=== PATIENT | female | born 1975 | race Caucasian/White ===

== ENCOUNTER 2020-09-17 18:40 | Outpatient (REF) | payer OTHER, SELFPAY ==
[2020-09-17 19:23] LABS: HCT 46.7 % (36.0-46.0); HGB 16.2 g/dL (11.2-15.7); MCH 33.1 pg (27.0-33.0); MCHC 34.7 % (32.0-36.0); MCV 95.5 fL (80-95); MPV 8.5 fL (8.0-11.0); Platelet Count 365 10^3/uL (130-400); RBC 4.89 10^6/uL (3.93-5.22); RDW 12.7 % (11.7-14.6); RDW-SD 45.1 fL; WBC 8.68 10^3/uL (4.4-10.8)
[2020-09-17 19:41] LABS: ALT 33 U/L (14-59); AST 23 U/L (15-37); Albumin 3.9 g/dL (3.4-5.0); Alkaline Phosphatase 92 U/L (46-116); Anion Gap 10.7 mmol/L (3-11); BUN 15 mg/dL (7-18); Bilirubin, Total 0.6 mg/dL (0.2-1.0); CO2 26.3 mmol/L (21.0-32.0); CREATININE 0.9 mg/dL (0.55-1.02); Calcium 9.3 mg/dL (8.5-10.1); Chloride 103 mmol/L (98-107); Glucose 103 mg/dL (74-106); Potassium 4.5 mmol/L (3.5-5.1); Sodium 140 mmol/L (136-145); Total Protein 7.2 g/dL (6.4-8.2)
== END 2020-09-17 18:41 | disposition home or self-care (01) ==
LOC: NCHCN 18:40
PROVIDERS: Visit Provider Nurse Practitioner
DX: F10.99 Alcohol use, unspecified with unspecified alcohol-induced disorder (principal); F17.210 Nicotine dependence, cigarettes, uncomplicated; R63.0 Anorexia
CPT/HCPCS: 80053; 85027

== ENCOUNTER → 2021-12-17 16:06 | Outpatient (CLI) | payer OTHER, SELFPAY ==
--- NOTE | 2021-12-17 | DI.RAD_ITS ---
Exam(s) XR ELBOW LT COMPLETE EXAM: XR ELBOW LT COMPLETE CLINICAL HISTORY: LEFT ELBOW PAIN--M25.522 TENDER OLECRANON HEMATOMA MID ULNA SHAFT. TECHNIQUE: 2D digital imaging was performed. Three views. COMPARISON: No exams were available for comparison FINDINGS: BONES: No acute fracture is present. No bony destructive lesion is seen. JOINTS: The elbow is normally aligned. No joint effusion is seen. SOFT TISSUE: Normal. IMPRESSION: Unremarkable radiographs of the left elbow. DATA REPOSITORY: RADIATION DOSE DELIVERED:
== END ==
PROVIDERS: Visit Provider Family Medicine
DX: S50.02XA Contusion of left elbow, initial encounter (principal); W19.XXXA Unspecified fall, initial encounter
CPT/HCPCS: 73080

== ENCOUNTER 2022-07-10 16:09 | Outpatient (REF) | payer OTHER, SELFPAY ==
[2022-07-10 15:36] LABS: Abs Immature Grans 0.02 10^3/uL (0.0-0.06); Absolute Basophil Count 0.06 10^3/uL (0.0-0.2); Absolute Eosinophil Count 0.11 10^3/uL (0.0-0.7); Absolute Lymphocyte Count 2.13 10^3/uL (1.2-3.4); Absolute Monocyte Count 0.62 10^3/uL (0.1-0.8); Absolute Neutrophil Count 4.19 10^3/uL (1.2-6.7); Basophils % 0.8; Eosinophils % 1.5; HCT 51.4 % (36.0-46.0); Immature Grans % 0.3; Lymphocytes % 29.9; MCV 92 fL (80-95); MPV 8.2 fL (8.0-11.0); Monocytes % 8.7; Neutrophils % 58.8; Platelet Count 302 10^3/uL (130-400); RBC 5.62 10^6/uL (3.93-5.22); RDW 13.2 % (11.7-14.6); RDW-SD 45.2 fL; WBC 7.13 10^3/uL (4.4-10.8)
[2022-07-10 16:04] LABS: ALT 34 U/L (14-59); AST 20 U/L (15-37); Albumin 3.8 g/dL (3.4-5.0); Alkaline Phosphatase 88 U/L (46-116); Anion Gap 9.7 mmol/L (3-11); BUN 13 mg/dL (7-18); Bilirubin, Total 0.3 mg/dL (0.2-1.0); CO2 25.3 mmol/L (21.0-32.0); CREATININE 0.8 mg/dL (0.55-1.02); Calculated LDL 147 mg/dL (<100); Chloride 105 mmol/L (98-107); Cholesterol 200 mg/dL (<200); Glucose 120 mg/dL (74-106); HDL Cholesterol 41 mg/dL (40-60); Potassium 4.7 mmol/L (3.5-5.1); Sodium 140 mmol/L (136-145); TSH (W/Ref FT4) 1.99 uIU/mL (0.36-3.74); Total Protein 7.3 g/dL (6.4-8.2); Triglyceride 62 mg/dL (<150)
== END 2022-07-10 16:10 | disposition home or self-care (01) ==
LOC: NCHCN 16:09
PROVIDERS: PCP Nurse Practitioner Family; Visit Provider Nurse Practitioner Family
DX: Z00.00 Encounter for general adult medical examination without abnormal findings (principal); F41.8 Other specified anxiety disorders; F10.11 Alcohol abuse, in remission; F17.210 Nicotine dependence, cigarettes, uncomplicated; Z13.220 Encounter for screening for lipoid disorders
CPT/HCPCS: 80053; 80061; 84443; 85025

== ENCOUNTER 2023-03-09 06:14 | Day surgery (SDC) | payer OTHER, SELFPAY ==
--- NOTE | 2023-03-08 14:49 | W.PM.DSUDISC ---
Date of service: 03/09/23 Time of Service: 07:59 Discharge Plan Disposition Patient Disposition: Home Condition: Good Discharge Details Reason For Visit: screening colonoscopy Attending Provider: Syed Millard Primary Care Provider: NICHOLAS CARVALHO Home Meds and New Rx's Prescriptions: Continued citalopram [Celexa] 10 mg tablet 10 mg PO DAILY propranolol 10 mg tablet 10 mg PO BID PRN Patient Comments: As needed for anxiety ibuprofen 200 mg capsule 200 mg PO ONCE Discontinued bisacodyl [Dulcolax (bisacodyl)] 5 mg tablet,delayed release (DR/EC) 5 mg PO ONCE Qty: 4 0RF polyethylene glycol 3350 17 gram/dose powder 17 g PO DAILY Qty: 238 0RF Discharge Instructions Instructions: Colorectal Polyps (GEN) Additional Instructions: Bernard, we were able to complete your colonoscopy today without any difficulty. I found 3 polyps in total. All were quite small, and I removed them all completely. Once I have the results of the polyp report, I will be in touch with recommendations for your next colonoscopy. If you have any questions in the meantime, please do not hesitate to call. 1. If tolerated, consume a soft, low fiber diet for 1-2 days. 2[address] Do not drive, drink alcohol, operate machinery, make critical decisions, or do activities that require coordination or balance for 24 hours. 3. Because air was put into your colon during the procedure, expelling air from your rectum (passing gas or farting) is normal. 4. You may not have a bowel movement for 1-3 days because of the colonoscopy prep. This is normal. 5. Go directly to the emergency room if you notice any of the following: Develop chills (warm to touch), or if you have a thermometer and your temperature is above 101 Difficulty breathing or difficultly swallowing Persistent vomiting Severe abdominal pain, other than gas cramps Severe chest pain Black, tarry stools Any bleeding ? exceeding one tablespoon 6. Call your physician if the site where your intravenous was started becomes red, swollen, painful, and warm to touch. 7. Your physician has reviewed your pre-procedure medications. Please continue to take those medications as previously ordered. You will be given specific information/education regarding any changes to your medications before leaving. Activity:: Activity as Tolerated Diet:: As Tolerated Discharge Orders Discharge Orders: Discharge Order (Routine); Ordered 03/08/23 Ordered By: Syed Millard DS: Diagnosis Discharge Diagnosis (1) Screen for colon cancer: Status: Acute Asessment and Plan: Follow-up on polypectomy results
--- NOTE | 2023-03-08 14:50 | COLE_ITS ---
Date of service: 03/09/23 Time of Service: 08:00 Colonoscopy Report Date of procedure: 03/09/23 Pre-op diagnosis general: screening colonoscopy Post-op diagnosis procedure note: other (Colorectal polyps) Procedure: Colonoscopy with polypectomy Surgeon: Syed Millard Anesthesia Type: General:No Airway Estimated blood loss (mL): 5 Pathology: other (0.5 cm polyp at 35 cm, 0.25 cm rectal polyps x2) Complications: None Disposition: same day Indications: Bernard is 48 years old and he needs a screening colonoscopy Prep: Miralax/Dulcolax Procedure Start Time: 07:30 Procedure End Time: 07:50 Retraction Time: 9 Findings: 0.5 cm polyp at 35 cm, 0.25 cm rectal polyps x2 Procedure Description: After the induction of monitored anesthetic care, and with the patient in left lateral decubitus position, I began by performing an external anorectal exam.? Perineum and skin were normal, as was the anal verge.? There was no evidence of external hemorrhoids.? Next, I performed a digital rectal exam.? I did not appreciate any abnormal findings.? Next, I advanced a colonoscope into the rectal vault.? I performed retroflexion.? This appeared normal.? Using insufflation, I then advanced the colonoscope beyond the rectal folds and into the sigmoid colon before advancing towards the cecum.? The scope was noted to be in the cecum by identification of the ileocecal valve and old appendiceal orifice.? I then began withdrawing the colonoscope using repeated irrigation as necessary for full evaluation of the colonic mucosa. Around 35 cm from the anal verge I identified a 0.5 cm polyp. ?It appeared flat in character. ?I was able to remove this with a cold forcep polypectomy. ?I examined the site, and there was minimal bleeding. ?Once this was completed, I continued to withdraw the scope and examine the remainder of the colonic mucosa.?Once the scope was withdrawn to the level of the rectum, great care was taken to examine portions of the rectal folds.? Within the mid rectum, worst to 0.25 cm flat polyps. These were also removed with cold forceps without any issue. Finally, the scope was withdrawn and the patient was brought to the same-day surgery recovery unit as the anesthetic wore off. ?The findings and instructions were shared with the patient prior to discharge. [place] Bowel Prep [place] Bowel Prep Right Colon: 3 Left Colon: 2 Transverse Colon: 3 Total Score: 8
[2023-03-09] MEDS: Lactated Ringers 1,000 ML 80 ML IV (06:35)
[2023-03-09 06:36] VITALS: BP 109/74; PULSE 82; RESP 16; TEMP 36.6; O2SAT 95
--- NOTE | 2023-03-09 07:17 | ANES.PREOP_ITS ---
General Info Date of Service Date Performed: 03/09/23 Height: 5 ft 6 in Weight: 62 kg Body Mass Index (BMI): 22.0 Surgical Procedure: Operation Date: 03/09/23 07:35 Proposed Procedure Side Surgeon p Colonoscopy Syed Millard MD Meds Allergies and Home Medications Allergies Allergy/AdvReac Type Severity Reaction Status Date / Time codeine Allergy Severe Verified 03/09/23 06:31 Home Medication Medication Instructions Recorded citalopram 10 mg tablet (Celexa) 10 mg PO DAILY 02/02/23 propranolol 10 mg tablet 10 mg PO BID PRN 03/06/23 ibuprofen 200 mg capsule 200 mg PO ONCE 03/09/23 Current Visit Medications: Current Medications Generic Name Dose Route Start Last Admin Trade Name Freq PRN Reason Stop Dose Admin Hyoscyamine Sulfate 0.125 mg 03/08/23 14:51 Hyoscyamine 0.125 Mg Sl/Oral/Chew SL 04/07/23 14:50 DIRECTED PRN Ringer's Solution 1,000 mls @ 80 mls/hr 03/09/23 06:00 03/09/23 06:35 IV 03/09/23 23:59 80 mls/hr INFUSION ERICK Administration IV Miscellaneous Supplies 1 each 03/09/23 06:00 Iv Access IV 03/09/23 23:59 DIRECTED ERICK Ondansetron HCl 4 mg 03/08/23 14:51 Ondansetron 4 Mg/2 Ml Vial IVP 04/07/23 14:50 Q4H PRN PRN Nausea / Vomiting Sodium Chloride 0 ml 03/09/23 06:00 Normal Saline Flush 10 Ml Syr IV 03/09/23 23:59 PRN PRN Sodium Chloride 0 ml 03/09/23 06:00 Normal Saline 10 Ml Vial IJ 03/09/23 23:59 DIRECTED PRN Sterile Water 0 ml 03/09/23 06:00 Water,Injection,Sterile 10 Ml Vial IJ 03/09/23 23:59 DIRECTED PRN PFSH Active Problems Active Problems: Problem Status Onset Code Screen for colon cancer Z12.11 Chronic anxiety F41.9 Tobacco dependence F17.200 Alcohol abuse, 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 stated when he woke up from anesthesia he almost bit his tongue off, had a seizure of something (at [facility]), 20 years ago Surgical History Surgical History H/O cataract removal with insertion of prosthetic lens R eye, cornea replacement Hx of colonoscopy Hx of appendectomy Tobacco Smoking/Tobacco Use Status: Current every day Tobacco Type: cigars Per week: 35 Alcohol Alcohol Intake: never Substance Use Substance use: Daily Substance use type: marijuana Details: Marijuana: bowl daily, last time used was 03/08/23. Cigar, smoked on way in here today. Vital Signs and Lab Results Vital Signs Most Recent Vital Signs in EMR: Most Recent Vital Signs Temp Pulse Resp BP Pulse Ox 36.6 C 82 16 109/74 95 03/09/23 06:36 03/09/23 06:36 03/09/23 06:36 03/09/23 06:36 03/09/23 06:36 Lab Results Blood Type / Crossmatch: No Data to Display Complete Blood Count: No Data to Display Complete Metabolic Panel: No Data to Display Liver Function Panel: No Data to Display Coagulation Panel: No Data to Display Cardiac Panel: No Data to Display Arterial Blood Gas: No Data to Display Venous Blood Gas: No Data to Display Pancreas Panel: No Data to Display Thyroid Panel: No Data to Display Infectious Disease: No Data to Display Blood Cultures: No Data to Display Toxicology Panel: No Data to Display Anesthesia Assessment and Plan Anesthesia History Personal History: Other Family History: No Family History of Anesthesia Complications Exercise Tolerance Exercise Tolerance: Metabolic Equivalents>4 Pertinent Negatives Pertinent Negatives: No Symptoms of GERD, No Major Cardiovascular Symptoms or Complaints, No Major Pulmonary Symptoms or Complaints and No History of CVA/TIA Cardiac & Pulmonary Exam Cardiac Exam: Normal S1/S2 Heart Sounds Pulmonary Exam: Clear Bilateral Breath Sounds Implantable Cardiac Device Does patient have a Pacemaker or an ICD?: No Airway Exam Known Difficult Airway: No Mallampati Class: 3 Mouth Opening: Normal (> 3cm) Thyromental Distance: Greater than 3 cm Neck Range of Motion: Full ROM Neck Circumference: Normal Teeth Condition: Removable Dentures/Plates Upper ASA Classification ASA Score: ASA 2 Emergency Case?: No NPO Status NPO Status: NPO Clears >2 hours, Solids >8 hours Anesthesia Plan Resuscitation Status: Full Code Anesthesia Technique: General Anesthesia Airway Planned: Natural Airway Monitors Used: Standard Monitors Preoperative Comments:: Questionable seizure following appendectomy in 1999, no issues with sedation for colonoscopy.
[2023-03-09 07:20] VITALS: BMI 22.0
--- NOTE | 2023-03-09 07:42 | BOWEL_PTH ---
PATIENT: Bernard Willams LOC: [facility] U#:[id number] AGE/SX: 48/M ROOM: RE03/09/[address]: Syed Millard MD : 1975 BED: DIS: 03/09/2023 SPEC #: [id number] RECD: 03/09/23 11:51 STATUS: VIVEK RE #: [id number] AL: 03/09/23 07:[address]: Syed Millard DEPT: Surgical Specimen RECD BY: Evelina Paiz ENTERED: 03/09/23 11:53 SP TYPE: Bowel OTHR DR: NICHOLAS CARVALHO NP Tissues: 1 - BIOPSY BOWEL 2 - BIOPSY BOWEL Procedures: GROSS AND MICRO LEVEL 4 Comments: [id number]
[2023-03-09 07:58] VITALS: BP 96/52; PULSE 80; RESP 16; TEMP 36.6; O2SAT 96
--- NOTE | 2023-03-09 08:26 | W.ANESPOSTOP ---
Postoperative Evaluation Date, Time and Location Date Performed: 03/09/23 Time Performed: 08:02 Patient Location: Day Surgery Unit Vital Signs Most Recent Imported Vital Signs: Most Recent Vital Signs Temp Pulse Resp BP Pulse Ox 36.6 C 80 16 96/52 L 96 03/09/23 07:58 03/09/23 07:58 03/09/23 07:58 03/09/23 07:58 03/09/23 07:58 Pain Score Most Recent Pain Score: Most Recent Pain Score Pain Level 0 03/09/23 07:58 Assessment Mental Status: Awake (Alert & Oriented to Patient Baseline) Airway and Respiratory Function: Patent airway with normal (patient baseline) respiratory exam Cardiovascular Function: Hemodynamically Stable Hydration Status: Adequately Hydrated Nausea & Vomiting: No Nausea or Vomiting Pain: Pt. Denies Any Pain Peripheral Nerve Block: Patient did not receive a nerve block
[2023-03-09 08:27] VITALS: BP 95/69; PULSE 65; RESP 16; TEMP 37; O2SAT 96
== END 2023-03-09 06:15 | disposition home or self-care (01) ==
PROVIDERS: PCP Nurse Practitioner Family; Visit Provider Surgery
PROC: 0DJD8ZZ Inspection of Lower Intestinal Tract, Via Natural or Artificial Opening Endoscopic (ICD-10-PCS; CPT 45378; principal; 2023-03-09 07:30)
DX: Z12.11 Encounter for screening for malignant neoplasm of colon (principal); K63.5 Polyp of colon; F17.200 Nicotine dependence, unspecified, uncomplicated; F10.11 Alcohol abuse, in remission; F12.90 Cannabis use, unspecified, uncomplicated
CPT/HCPCS: 45380; 88305; J2001

== ENCOUNTER 2023-12-29 14:23 | Outpatient (REF) | payer OTHER, SELFPAY ==
[2023-12-29 19:19] LABS: Abs Immature Grans 0.03 10^3/uL (0.0-0.06); Absolute Basophil Count 0.08 10^3/uL (0.0-0.2); Absolute Eosinophil Count 0.07 10^3/uL (0.0-0.7); Absolute Lymphocyte Count 2.95 10^3/uL (1.2-3.4); Absolute Monocyte Count 0.63 10^3/uL (0.1-0.8); Absolute Neutrophil Count 6.67 10^3/uL (1.2-6.7); Basophils % 0.8 %; Eosinophils % 0.7 %; HCT 44.3 % (40.0-50.0); HGB 15.6 g/dL (13.5-17.5); Immature Grans % 0.3 %; Lymphocytes % 28.3 %; MCH 33.4 pg (27.0-33.0); MCHC 35.2 % (32.0-36.0); MCV 95 fL (80-95); MPV 8.3 fL (8.0-11.0); Neutrophils % 63.9 %; Platelet Count 301 10^3/uL (130-400); RBC 4.67 10^6/uL (4.36-5.78); RDW 13.6 % (11.8-14.1); RDW-SD 47.8 fL; WBC 10.43 10^3/uL (4.4-10.8)
[2023-12-29 19:48] LABS: ALT 20 U/L (16-63); AST 20 U/L (15-37); Albumin 3.4 g/dL (3.4-5.0); Alkaline Phosphatase 84 U/L (46-116); Anion Gap 5.3 mmol/L (3-11); BUN 12 mg/dL (7-18); CO2 28.7 mmol/L (21.0-32.0); CREATININE 0.9 mg/dL (0.70-1.30); Calcium 8.7 mg/dL (8.5-10.1); Chloride 100 mmol/L (98-107); Estimated GFR 105.35 (mL/min/1.73m2); Glucose 101 mg/dL (74-106); Potassium 4.4 mmol/L (3.5-5.1); Sodium 134 mmol/L (136-145); Total Protein 7.1 g/dL (6.4-8.2)
== END 2023-12-29 14:24 | disposition home or self-care (01) ==
LOC: NCHCN 14:23
PROVIDERS: PCP Nurse Practitioner Family; Visit Provider Nurse Practitioner Family
DX: Z00.00 Encounter for general adult medical examination without abnormal findings (principal)
CPT/HCPCS: 80053; 85025

== ENCOUNTER 2024-03-09 18:55 | Outpatient (CLI) | payer OTHER, SELFPAY ==
--- NOTE | 2024-03-09 | DI.RAD_ITS ---
Exam(s) XR SHOULDER LT COMPLETE 2+V EXAM: XR SHOULDER LT COMPLETE 2+V CLINICAL HISTORY: Pain in left shoulder. TECHNIQUE: 2D digital imaging was performed of the left shoulder. Four images were obtained. AP, G rashey and Y views were obtained. COMPARISON: No exams were available for comparison FINDINGS: BONES: No acute fracture is present. No bony destructive lesion is seen. JOINTS: No dislocation present. There are mild degenerative changes seen at the acromioclavicular veronique nt. The glenohumeral joint is well maintained. SOFT TISSUE: Normal. IMPRESSION: Mild degenerative changes at the left AC joint. No acute abnormality is identified. DATA REPOSITORY: RADIATION DOSE DELIVERED:
--- NOTE | 2024-03-09 19:59 | DI.VRAD_ITS ---
PROCEDURE INFORMATION: Exam: XR Left Shoulder Exam date and time: 03/09/2024 7:10 PM Age: 49 years old Clinical indication: Other: Pain TECHNIQUE: Imaging protocol: Radiologic exam of the left shoulder. Views: 2 or more views. COMPARISON: CR XR ELBOW LT COMPLETE 12/17/2021 1:52 PM FINDINGS: Bones/joints: Mild degenerative changes. No acute fracture. No acute malalignment. Soft tissues: Normal. IMPRESSION: No acute bony abnormality. Dictated and Authenticated by: Hugh Poon MD. Ordering:KINZA Liu MD
== END 2024-03-09 19:15 ==
PROVIDERS: PCP Nurse Practitioner Family; Visit Provider Physician Assistant Medical
DX: M19.012 Primary osteoarthritis, left shoulder (principal)
CPT/HCPCS: 73030

== ENCOUNTER 2024-03-31 00:09 | Outpatient (CLI) | payer OTHER, SELFPAY ==
--- NOTE | 2024-03-31 | DI.MRI_ITS ---
Exam(s) MR UPPER JOINT LT WO EXAM: MR UPPER JOINT LT WO CLINICAL HISTORY: M25.512 Pain in left shoulder. TECHNIQUE: Multiplanar multisequence MRI was performed. COMPARISON: Plain films 09 March 2024 FINDINGS: BONES: There is no evidence of fracture. There is edema around the acromioclavicular joint. JOINTS:The acromioclavicular joint shows mild spurring. The glenohumeral joint shows normal quantity of fluid. TENDONS: Supraspinatus: Unremarkable. Infraspinatus: Unremarkable. Subscapularis: Unremarkable. Teres Minor: Unremarkable. Biceps and [place]: Unremarkable. MUSCLES: Unremarkable. GLENOID LABRUM: No evidence of labral tear however there are tiny cysts adjacent to the posterior sup erior labrum. SOFT TISSUES: Unremarkable. BURSAE: Subacromial and subdeltoid bursae shows no fluid.. IMPRESSION: Edema in the distal clavicle and acromion may represent posttraumatic contusions. No evidence of rotator cuff tear. No visible labral tear however there are multiple tiny cysts adjacent to the posterior superior labru m. DATA REPOSITORY:
--- OUTSIDE RECORDS SUMMARY | 2024-03-31 00:11 | XMS_ITS | Encounter Summary ---
Author Organization [facility] Address [address] [place] [id number] Care Team Providers Care Chucking And Boring Machine Operator Name Role Phone Unknown, Provider Primary Care Provider Unava ilable Reason for Visit * Reason Onset Date Comments Appointment Related 06/28/2019 Encounter Details Date Type Department Care Team (Late st Contact Info) Description 06/28/2019 Telephone [facility] [address], [place] [id number] Harlan Paulino MD [address] [place] [address] Appointment Related Social History Tobacco Use Types Packs/Day Years Used Date Smoking Tobacco: Every Day Smokeless Tobacco: Never Sex and Gender Information Value Date Recorded Sex Assigned at Not on file Legal Sex Male 18:25 EST Gender Identity Not on file Sexual Orientation Not on file COVID-19 Exposure Response Date Recorded In the last month, have you been in contact with someone who was confirmed or suspected to have Coronavirus / COVID-19? No / Unsure 06/21/2019 12:42 EDT documented as of this encounter Plan of Treatment Not on file documented as of this encounter Visit Diagnoses Not on filedocumented in this encounter Care Teams Chucking And Boring Machine Operator Relationship Specialty Start Date End Date Unknown, Provider, PCP - General 08/02/15 documented as of this encounter
--- OUTSIDE RECORDS SUMMARY | 2024-03-31 00:11 | XMS_ITS | Encounter Summary ---
Author Organization [facility] Address [address] [place] [address] Care Team Providers Care Grant Officer Name Role Phone Unknown, Provider Primary Care Provider Unava ilable Encounter Details Date Type Department Care Team (Latest Contact Info) Description 06/21/2019 Travel Social History Tobacco Use Types Packs/Day Years [...] on filedocumented in this encounter Care Teams Grant Officer Relationship Specialty Start Date End Date Unknown, Provider, PCP - General 08/02/15 documented as of this encounter
--- OUTSIDE RECORDS SUMMARY | 2024-03-31 00:11 | XMS_ITS | Encounter Summary ---
Author Organization [facility] Address [address] [place] [address] Care Team Providers Care Chief Learning Officer Name Role Phone Unknown, Provider Primary Care Provider Unava ilable Encounter Details Date Type Department Care Team (Late st Contact Info) Description 03/09/2023 Lab Requisition [facility] Pathology & Laboratory Medicine - [facility] [address] [place] [address] Syed Millard MD [address] [place] [address], [address] [place] [address] Encounter for screening for malignant neoplasm of colon Social History Tobacco Use Types Packs/Day Years Used Date Smoking Tobacco: Every Day Smokeless Tobacco: Never Interpersonal Safety Answer Date Record ed Physically Hurt Never 11/06/2019 Verbally Threaten Not on file 11/06/2019 Sex and Gender Information Value Date Recorded Sex Assigned at Not on file Legal Sex Male 18:25 EST Gender Identity Not on file Sexual Orientation Not on file documented as of this encounter Plan of Treatment Not on file documented as of this encounter Procedures Procedure Name Priority Date/Time Associated Diagnosis Comments SURGICAL PATHOLOGY Today 03/09/2023 7:42 EST Encounter for screening for malignant neoplasm of colon documented in this encounter Results * SURGICAL PATHOLOGY (03/09/2023 7:42 EST) Note to Patient The following pathology results have been interpreted by your pathologist and may be available to you before your health provider has had the opportunity to review them. Please allow time for your provider to receive these results and explore management options, if applicable. 03/12/2023 10:08 [facility] Final Diagnosis A. COLON, 35 CM, POLYP, BIOPSY: - Colonic mucosa with no significant diagnostic abnormalities. - Deeper levels have been examined. B. RECTUM, POLYP X2, BIOPSIES: - Hyperplastic polyps. 03/12/2023 10:08 [facility] Attestation By the signature below, the attending physician certifies that they have 1) personally conducted a gross and/or microscopic examination of the described specimen(s), and/or personally interpreted the results of laboratory testing of the described specimen(s), and 2) personally rendered or confirmed the above diagnosis. 03/12/2023 10:08 [facility] at 1008 Clinical History Colorectal screening 03/12/2023 10:08 [facility] Gross Description A. Received in formalin labelled with proper patient identification (initials S, S) and 1. Colon polyp is a single sun-brown tissue (0.3 x 0.2 x 0.1 cm). Submitted intact in A1. B. Received in formalin labelled with proper patient identification (initials S, S) and 2. Rectal polyp x2 are 4 sun to transparent sun tissues (0.5 x 0.2 x 0.1 cm to less than 0.1 by less than 0.1 by less than 0.1 cm). Entirely submitted in B1. Please note the smaller tissues may not survive processing. Hanane Shelton 03/10/2023 6:57 03/12/2023 10:08 [facility] Performing Lab [facility] 03/12/2023 10:08 [facility] Scanned Images 03/12/2023 10:08 [facility] Tissue SPECIMEN FROM RECTUM / Unknown 03/09/2023 7:42 EST 03/09/2023 16:40 EST Tissue specimen (specimen) SPECIMEN FROM RECTUM / Unknown 03/09/2023 7:42 EST 03/09/2023 16:40 EST us Syed Millard MD PATHOLOGY ORDERABLES Final Resu lt [facility] [address] [place] [address] documented in this encounter Visit Diagnoses Diagnosis Encounter for screening for malignant neoplasm of colon Special screening for malignant neoplasms, colon documented in this encounter Care Teams Chief Learning Officer Relationship Specialty Start Date End Date Unknown, Provider, PCP - General 08/02/15 documented as of this encounter
--- OUTSIDE RECORDS SUMMARY | 2024-03-31 00:11 | XMS_ITS | Encounter Summary ---
Author Organization [facility] Address [address] [place] [address] Care Team Providers Care Clay House Worker Name Role Phone Unknown, Provider Primary Care Provider Unava ilable Reason for Visit * Reason Comments Eye Problem Right eye - FB/rust ring s/p ER visit Encounter Details Date Type Department Care Team (Late st Contact Info) Description 06/21/2019 12:30 EDT Office Visit [facility] [address] [place] [address] Harlan Paulino MD [address] [place] [phone] Social History Tobacco Use Types Packs/Day Years [...] 12:42 EDT documented as of this encounter Ordered Prescriptions Prescription Sig Dispense Quantity Refills Last Filled Start Date End Date moxifloxacin (VIGAMOX) 0.5 % ophthalmic solutionIndications :Corneal rust ring of right eye Place 1 Drop into the right eye 4 times daily for 4 days. 3 mL 06/21/2019 06/25/2019 documented in this encounter Progress Notes * Harlan Paulino MD - 06/21/2019 1230 EDT Chief Complaint Patient presents with ??? Eye Problem Right eye - FB/rust ring s/p ER visit HPI The patient is a 44 y.o. male with possible FB/rust ring in the right eye s/p ER visit earlier today. He got a piece of metal in his eye while working under his vehicle. He was wearing safety glassesat the time. His eye has been tearing with FB sensation, pain & blurred vision. 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 Right Eye: Blurred Vision, Tearing, Gritty/Foreign Body sensation, Pain/Soreness, Redness, Glare orLight Sensitivity Left Eye: NL Visual Aid: Current Rx Age Location: Right eye Pain: 7.0 Quality: Throbbing Severity: Duration: Hours Timing: Constant Lasts: Continuous Context: Pt here s/p ER visit with possible metalic FB/rust ring in the right eye. He is having 7/10 pain, tearing, blurriness & FB sensation in the right eye. He was under truck yesterday - metal FB got in his right eye w/safety glasses on. ER removed some metal today. Modifying factors: s/p corneal transplant right eye (03/06) Associated Signs & Symptoms: Attestation: ROS Constitutional: ENT/Mouth Cardiovascular: Respiratory: Gastrointestinal: Genitourinary: Musculoskeletal: Integumentary: Neurologic: Psychiatric: Endocrine: Hematologic: Immunologic: Adult Protective Caseworker: Exposures: Other: Attestation: Base Eye Exam Visual Acuity (Snellen - Linear) Right Left Dist sc 20/50 +1 20/20 -3 Dist ph sc NI Tonometry (Applanation, 12:57) Right Left Pressure 14 Dilation Both eyes: Tropicamide 1%, Phenylephrine 10% @ 13:00 Slit Lamp and Fundus Exam Slit Lamp Exam Right Left Lids/Lashes Normal Normal Conjunctiva/Sclera Injection White and quiet Cornea Penetrating keratoplasty, rust ring at 3 o'clock near graft/host junction Clear Anterior Chamber Deep and quiet Deep and quiet Iris Round and reactive Round and reactive Lens Posterior chamber intraocular lens Clear Fundus Exam Right Left Vitreous Normal Disc Normal C/D Ratio 0.3 Macula Normal Vessels Normal Periphery Normal DIAGNOSTIC TESTING/PROCEDURES: IMPRESSION & PLAN: 1. Corneal Foreign Body, right eye -removed at slit lamp with TB syringe and corneal norah -Discussed the importance of protective eye wear (especially when using any kind of power tools) inpreventing future eye injuries/chemical exposure -Vigamox drops 4 times daily for 4-5 days -Call or return if not improved in 3 days -Return in about 1 week for follow up. 2. History of Penetrating Keratoplasty, right eye S/p trauma in 2000 No edema Monitor I have reviewed the patient's past medical, family, social and surgical history. I have also reviewed the patient's medications, allergies, and problem list. I performed my own HPI and have reviewed the tech's ROS as well. I completed this exam personally. Harlan Paulino MD I am scribing for Harlan Paulino MD, while he is personally performing the service. MIGUELITO Núñez Patient Education Topic: corneal foreign body Method: Verbal Taught to: Patient Barriers: None Outcomes: independent Signature: Harlan Paulino MD documented in this encounter Plan of Treatment Not on file documented as of this encounter Visit Diagnoses Diagnosis Corneal rust ring of right eye- Primary documented in this encounter Eye Exam Visual Acuity (Snellen - Linear) Right eye Left eye Dist sc 20/50 +1 20/20 -3 Dist ph sc NI Tonometry (Applanation, 12:57) Right eye Left eye Pressure 14 Dilation Both eyes: Tropicamide 1%, P henylephrine 10% @ 13:00 Slit Lamp Exam Right eye Left eye Lids/Lashes Normal Normal Conjunctiva/Sclera Injection White and tung et Cornea Penetrating keratopl asty, rust ring at 3 o'clock near graft/host junction Clear Anterior Chamber Deep and quiet Deep and quiet Iris Round and reactive Round and joseph ctive Lens Posterior chamber intraocular le ns Clear Vitreous Normal Fundus Exam Right eye Left eye Disc Normal C/D Ratio 0.3 Macula Normal Vessels Normal Periphery Normal Care Teams Clay House Worker Relationship Specialty Start Date End Date Unknown, Provider, PCP - General 08/02/15 documented as of this encounter
--- OUTSIDE RECORDS SUMMARY | 2024-03-31 00:11 | XMS_ITS | Referral Summary ---
Author Organization [facility] Address [address] [place] [address] Care Team Providers Care Broadcast Correspondent Name Role Phone Unknown, Provider Primary Care Provider Unava ilable Allergies Active Allergy Reactions Criticality Noted Date Comments Codeine 06/21/2019 Medications No known medications Active Problems No known active problems Social History Tobacco Use Types Packs/Day Years Used Date Smoking Tobacco: Every Day Smokeless Tobacco: Never Interpersonal Safety Answer Date Record ed Physically Hurt Never 11/06/2019 Verbally Threaten Not on file 11/06/2019 Sex and Gender Information Value Date Recorded Sex Assigned at Not on file Legal Sex Male 18:25 EST Gender Identity Not on file Sexual Orientation Not on file Plan of Treatment Not on file Insurance [facility] BL[facility] Care Teams Broadcast Correspondent Relationship Specialty Start Date End Date Unknown, Provider, PCP - General 08/02/15
--- OUTSIDE RECORDS SUMMARY | 2024-03-31 00:11 | XMS_ITS | Clinical Summary ---
Author Organization [facility] Address [address] [place] [address] Care Team Providers Care Supervisor Covering And Lining Name Role Phone Unknown, Provider Primary Care Provider Unava ilable Allergies Active Allergy Reactions Criticality Noted Date Comments Codeine 06/21/2019 Medications No known medications Active Problems No known active problems Surgical History Surgery Date Site/Laterality Comments CATARACT REMOVAL WITH IMPLANT 04/06/2000 - 04/05/2001 Ri ght INTRAOCULAR LENS PROSTHESIS INSERTION 04/06/2000 - 04/05 Right Social History Tobacco Use Types Packs/Day Years Used Date Smoking Tobacco: Every Day Smokeless Tobacco: Never Interpersonal Safety Answer Date Record ed Physically Hurt Never 11/06/2019 Verbally Threaten Not on file 11/06/2019 Sex and Gender Information Value Date Recorded Sex Assigned at Not on file Legal Sex Male 18:25 EST Gender Identity Not on file Sexual Orientation Not on file Obstetrics History Plan of Treatment Health Maintenance Due Date Last Done Comments Hepatitis C Screen 1975 Pneumococcal Immunization (1 of 2 - PCV) 1981 Hepatitis B Vaccine (1 of 3 - 19+ 3-dose series) 03/03 COVID-19 Vaccine (2023- season) 2023 Insurance [facility] BLUE Care Teams Supervisor Covering And Lining Relationship Specialty Start Date End Date Unknown, Provider, PCP - General 08/02/15
--- OUTSIDE RECORDS SUMMARY | 2024-03-31 00:12 | XMS_ITS | Encounter Summary ---
Author Organization [facility] Address [address] [place] [address] Care Team Providers Care Home Energy Inspector Name Role Phone Unavailable Primary Care Provider Unavailabl e Encounter Details Date Type Department Care Team (Latest Contact Info) Description 04/20/2001 10:50 EST - 04/20/2001 11:59 EST Hospital Encounter [address] [address] Louis Pagan MD [address] [place] [phone] Discharge Disposition: Auto Discharge Social History Tobacco Use Types Packs/Day Years Used Date Smoking Tobacco: Never Assessed Sex and Gender Information Value Date Recorded Sex Assigned at Not on file Legal Sex Male 18:25 EST Gender Identity Not on file Sexual Orientation Not on file documented as of this encounter Discharge Disposition Disposition Code Departure Means Destination Auto Discharge documented in this encounter Plan of Treatment Not on file documented as of this encounter Procedures Procedure Name Priority Date/Time Associated Diagnosis Comments FUNGUS CULTURE Routine 04/20/2001 15:05 EST STERILITY CULTURE Routine 04/20/2001 15: 05 EST FUNGUS CULTURE Routine 04/20/2001 15:04 EST STERILITY CULTURE Routine 04/20/2001 15: 04 EST SURGICAL PATHOLOGY Routine 04/20/2001 0:00 EST documented in this encounter Results * FUNGUS CULTURE, OTHER (04/20/2001 15:05 EST) Specimen Description Scleral rim [facility] Result No fungi isolated [facility] Report Status Final [id number] [facility] 04/20/2001 15:0 5 EST 04/20/2001 15:05 EST Louis Pagan MD MICROBIOLOGY - GENERAL ORDER WALLACE Final Result Performing Organization Address [facility] Co de Phone Number [facility] [address] [place] [address] * STERILITY CULTURE (04/20/2001 15:05 EST) Specimen Description Scleral rim [facility] Result Unable to quantitate STAPHYLOCOCCUS SACCHAROLYTICUS Unable to quantitate CORYNEBACTERIUM SPECIES [facility] Report Status Final [id number] [facility] 04/20/2001 15:0 5 EST 04/20/2001 15:05 EST Louis Pagan MD MICROBIOLOGY - GENERAL ORDER WALLACE Final Result Performing Organization Address [facility] de Phone Number [facility] [address] [place] [address] * FUNGUS CULTURE, OTHER (04/20/2001 15:04 EST) Specimen Description Optisol solution [facility] Result No fungi isolated [facility] Report Status Final [id number] [facility] 04/20/2001 15:0 4 EST 04/20/2001 15:04 EST Louis Pagan MD MICROBIOLOGY - GENERAL ORDER WALLACE Final Result Performing Organization Address [facility] Co de Phone Number [facility] [address] [place] [address] * STERILITY CULTURE (04/20/2001 15:04 EST) Specimen Description Optisol solution [facility] Result No growth [facility] Report Status Final [id number] [facility] 04/20/2001 15:0 4 EST 04/20/2001 15:04 EST us Louis Pagan MD MICROBIOLOGY - GENERAL ORDER WALLACE Final Result [facility] [address] [place] [address] * SURGICAL PATHOLOGY (04/20/2001 0:00 EST) Pathology Report: SURGICAL PATHOLOGY REPORT Reports generated via electronic interface contain original data; however they are lacking the format of the original report. Caution should be taken when reading/interpreti ng unformatted reports. Name: ? BLAYNE WILLAMS ? Accession #: ? [id number] ? : ? 1975 (Age: 26) ??M ? Collect Date: ? 04/20/2001 ? Location: ? [facility] ? Receive Date: ? 04/21/2001 ? Provider: LOUIS PAGAN MD Copy to: ? Final Pathologic Diagnosis: ? Cornea, right, excision: - Central corneal scar and multifocal foreign body giant cell reaction to suture material. Document reviewed and electronically signed by: SHERYL CHEEK MD Report ??Date: 04/23/2001 17:35 By the signature above, the attending physician certifies that he/she has personally conducted a gross and/or microscopic examination of the described specimens and rendered or confirmed the above diagnosis. Specimen(s) Received: ? Patient' s right cornea Clinical History: ? Right corneal scar, S/P corneal trauma Gross Description: ? Received in formalin labelled Imer and patient' s right cornea is a slightly distorted discoid pale sun, slightly clouded 0.8 x 0.7 x 0.2 cm friable tissue fragment. ??On one surface, there are four sun-morales linear defects. ??The specimen is trisected and entirely submitted in one cassette. ??(Pankaj Lozano)/tmg End of Report [facility] 04/20/2001 04/21/2001 9:2 5 EST Louis Pagan MD PATHOLOGY ORDERABLES Final R esult [facility] [address] [place] [address] documented in this encounter Visit Diagnoses Not on filedocumented in this encounter
--- OUTSIDE RECORDS SUMMARY | 2024-03-31 00:12 | XMS_ITS | Encounter Summary ---
Author Organization [facility] Address [address] [place] [address] Care Team Providers Care Call Center Agent Name Role Phone Unknown, Provider Primary Care Provider Unava ilable Encounter Details Date Type Department Care Team (Latest Contact Info) Description 05/12/2018 15:18 EST - 05/12/2018 23:59 EST Hospital Encounter [facility] [address] [place] [address] Unknown, ProviderMD Discharge Disposition: Home or Self Care Social History Tobacco Use Types Packs/Day Years Used Date Smoking Tobacco: Never Assessed Sex and Gender Information Value Date Recorded Sex Assigned at Not on file Legal Sex Male 18:25 EST Gender Identity Not on file Sexual Orientation Not on file documented as of this encounter Discharge Disposition Disposition Code Departure Means Destination Home or Self [facility] documented in this encounter Plan of Treatment Not on file documented as of this encounter Visit Diagnoses Not on filedocumented in this encounter Care Teams Call Center Agent Relationship Specialty Start Date End Date Unknown, Provider, PCP - General 08/02/15 documented as of this encounter
--- OUTSIDE RECORDS SUMMARY | 2024-03-31 00:12 | XMS_ITS | Encounter Summary ---
Author Organization [facility] Address [address] [place] [address] Care Team Providers Care Machine Paint Mixer Name Role Phone Unknown, Provider Primary Care Provider Unava ilable Encounter Details Date Type Department Care Team (Late st Contact Info) Description 10/12/2018 Historical Results Only [facility] Radiology Results [address] [place], [place] [id number] Arvin Mar, SCREW MACHINE TENDER [address] [facility] [address] [place] [address] Social History Tobacco Use Types Packs/Day Years [...] Procedure Name Priority Date/Time Associated Diagnosis Comments XR TIBIA FIBULA LEFT 2 VIEWS 10/12/2018 19:56 EDT documented in this encounter Results * XR TIBIA FIBULA LEFT 2 VIEWS (10/12/2018 19:56 EDT) Anatomical Region Laterality Modality Lower Extremities Other 10/12/2018 19:5 6 EDT Narrative 10/12/2018 19:56 EDT ? EXAM: RADIOLOGY EXPRESS CARE/EXP CARE TIB EX. D/ (1856) ? CLINICAL INFORMATION: ? R/O PROXIMAL FIBULA ABN, SUSPECT GASTROCNEMIUS STRAIN ? EXAM: ??XR Left Tibia and Fibula ? EXAM DATE/TIME: ??10/12/2018 6:51 PM ? CLINICAL HISTORY: ??43 years old, male; Pain; Lower leg; Left; ? Additional info: R/O proximal fibula abn, suspect gastrocnemius ? strain ? TECHNIQUE: ? Imaging protocol: ??XR Left tibia and fibula. ? Views: 2 views. ? COMPARISON: ??No relevant prior studies available. ? FINDINGS: ? No focal soft tissue swelling or effacement of subcutaneous soft ? tissue planes. ? Bony structures are aligned normally and demonstrate normal ? trabecular detail. ? No fracture or stress fracture. ? No concerning osseous lesion. ? IMPRESSION: ? Unremarkable radiographic series of the leg. No abnormality of the ? proximal fibula ? REPORT SIGNED IN OTHER VENDOR SYSTEM 10/12/2018 ?Reported By: Harshad Yen MD ? CC: ? Transcribed Date/Time: 10/12/2018 (1956) ? Housekeeping And Laundry Team Leader: .[facility] ? Printed Date/Time: 12/22/2018 (1221) ? PAGE 1 ? Signed Report ? Procedure Note Carlos Yen MD - 02/08/2019 EXAM: RADIOLOGY EXPRESS CARE/EXP CARE TIB EX. D/ (1856) CLINICAL INFORMATION: R/O PROXIMAL FIBULA ABN, SUSPECT GASTROCNEMIUS STRAIN EXAM: XR Left Tibia and Fibula EXAM DATE/TIME: 10/12/2018 6:51 PM CLINICAL HISTORY: 43 years old, male; Pain; Lower leg; Left; Additional info: R/O proximal fibula abn, suspect gastrocnemius strain TECHNIQUE: Imaging protocol: XR Left tibia and fibula. Views: 2 views. COMPARISON: No relevant prior studies available. FINDINGS: No focal soft tissue swelling or effacement of subcutaneous soft tissue planes. Bony structures are aligned normally and demonstrate normal trabecular detail. No fracture or stress fracture. No concerning osseous lesion. IMPRESSION: Unremarkable radiographic series of the leg. No abnormality of the proximal fibula REPORT SIGNED IN OTHER VENDOR SYSTEM 10/12/2018 Reported By: Harshad Yen MD CC: Transcribed Date/Time: 10/12/2018 (1956) Housekeeping And Laundry Team Leader: Printed Date/Time: 12/22/2018 (8976) PAGE 1 Signed Report us Arvin Mar SCREW MACHINE TENDER IMG DIAGNOSTIC IMAGING [facility]AN [facility] Final Result documented in this encounter Visit Diagnoses Not on filedocumented in this encounter Care Teams Machine Paint Mixer Relationship Specialty Start Date End Date Unknown, Provider, PCP - General 08/02/15 documented as of this encounter
--- OUTSIDE RECORDS SUMMARY | 2024-03-31 00:12 | XMS_ITS | Encounter Summary ---
Author Organization [facility] Address [address] [place] [address] Care Team Providers Care Cfo Name Role Phone Unavailable Primary Care Provider Unavailabl e Encounter Details Date Type Department Care Team (Latest Contact Info) Description 12/28/2000 9:34 EDT - 12/28/2000 11:59 EDT Hospital Encounter [address] [address] Ej Morales MD [address] [place], [place] [id number] Discharge Disposition: Auto Discharge Social History Tobacco [...]
--- OUTSIDE RECORDS SUMMARY | 2024-03-31 00:12 | XMS_ITS | Encounter Summary ---
Author Organization [facility] Address [address] [place] [address] Care Team Providers Care College And Career Counselor Name Role Phone Unknown, Provider Primary Care Provider Unava ilable Encounter Details Date Type Department Care Team (Late st Contact Info) Description 05/12/2018 Historical Results Only [facility] Radiology Results [address] [place], [place] [id number] Elijah Ha [place] [address] [place] [phone] Social History Tobacco Use Types Packs/Day Years [...] Name Priority Date/Time Associated Diagnosis Comments XR CERVICAL SPINE 4-5 VIEWS 05/12/2018 16:45 EST documented in this encounter Results * XR CERVICAL SPINE 4-5 VIEWS (05/12/2018 16:45 EST) Anatomical Region Laterality Modality Left Other 05/12/2018 16:4 5 EST Narrative 05/12/2018 16:45 EST ? EXAM: RADIOLOGY/CERVICAL SPINE 4 OR 5 VIE EX. D/ (1627) ? CLINICAL INFORMATION: ? NECK PAIN ? EXAM: ?XR Cervical Spine, 4 or 5 Views ? EXAM DATE/TIME: ?05/12/2018 4:08 PM ? CLINICAL HISTORY: ?43 years old, male; Pain; Neck pain ? TECHNIQUE: ?XR of the cervical spine, 4 or 5 views. ? COMPARISON: ?No relevant prior studies available. ? FINDINGS: ?Vertebrae: ??Cervical alignment is normal. Vertebral body ? heights are intact. The dens is intact. No subluxation. Facets ? are intact. Disc space heights are unremarkable. ?Soft tissues: ??Unremarkable. ? IMPRESSION: ? No acute findings. ? REPORT SIGNED IN OTHER VENDOR SYSTEM 05/12/2018 ?Reported By: Godfrey Willis MD ? CC: ? Transcribed Date/Time: 05/12/2018 (1645) ? Ceramic Chemist: ? Printed Date/Time: 09/26/2018 (2044) ? PAGE 1 ? Signed Report ? Procedure Note Godfrey Willis MD - 02/10/2019 EXAM: RADIOLOGY/CERVICAL SPINE 4 OR 5 VIE EX. D/ (1627) CLINICAL INFORMATION: NECK PAIN EXAM: XR Cervical Spine, 4 or 5 Views EXAM DATE/TIME: 05/12/2018 4:08 PM CLINICAL HISTORY: 43 years old, male; Pain; Neck pain TECHNIQUE: XR of the cervical spine, 4 or 5 views. COMPARISON: No relevant prior studies available. FINDINGS: Vertebrae: Cervical alignment is normal. Vertebral body heights are intact. The dens is intact. No subluxation. Facets are intact. Disc space heights are unremarkable. Soft tissues: Unremarkable. IMPRESSION: No acute findings. REPORT SIGNED IN OTHER VENDOR SYSTEM 05/12/2018 Reported By: Godfrey Willis MD CC: Transcribed Date/Time: 05/12/2018 (7661) Ceramic Chemist: Printed Date/Time: 09/26/2018 (9173) PAGE 1 Signed Report Elijah Ha DC IMG DIAGNOSTIC IMAGING ORDERA BLES Final Result documented in this encounter Visit Diagnoses Not on filedocumented in this encounter Care Teams College And Career Counselor Relationship Specialty Start Date End Date Unknown, Provider, PCP - General 08/02/15 documented as of this encounter
--- OUTSIDE RECORDS SUMMARY | 2024-03-31 00:12 | XMS_ITS | Encounter Summary ---
Author Organization [facility] Address [address] [place] [address] Care Team Providers Care Scrap Drop Crane Operator Name Role Phone Unknown, Provider Primary Care Provider Unava ilable Encounter Details Date Type Department Care Team (Latest Contact Info) Description 10/18/2018 11:32 EDT - 10/18/2018 23:59 EDT Hospital Encounter [address] [address] Unknown, ProviderMD Discharge Disposition: Home or Self [...] Code Departure Means Destination Home or Self Senior Living documented in this encounter Plan of Treatment Not on file documented as of this encounter Visit Diagnoses Not on filedocumented in this encounter Care Teams Scrap Drop Crane Operator Relationship Specialty Start Date End Date Unknown, ProviderMD PCP - General 08/02/15 documented as of this encounter
== END 2024-03-31 00:29 ==
LOC: DI 00:10
PROVIDERS: PCP Nurse Practitioner Family; Visit Provider Physician Assistant Medical
DX: M25.512 Pain in left shoulder (principal)
CPT/HCPCS: 73221

== ENCOUNTER 2024-12-06 16:29 | Outpatient (CLI) | payer OTHER, SELFPAY ==
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
== END 2024-12-06 16:49 ==
LOC: DI 16:29
PROVIDERS: PCP Nurse Practitioner Family; Visit Provider Family Medicine
DX: S69.92XA Unspecified injury of left wrist, hand and finger(s), initial encounter (principal); X58.XXXA Exposure to other specified factors, initial encounter
CPT/HCPCS: 73140

== ENCOUNTER 2024-12-29 17:22 | Outpatient (REF) | payer OTHER, SELFPAY ==
[2024-12-29 20:38] LABS: ALT 18 U/L (16-63); AST 15 U/L (15-37); Albumin 3.5 g/dL (3.4-5.0); Alkaline Phosphatase 87 U/L (46-116); Anion Gap 8.0 mmol/L (3-11); BUN 11 mg/dL (7-18); Bilirubin, Total 0.3 mg/dL (0.2-1.0); CO2 26.0 mmol/L (21.0-32.0); Calcium 8.5 mg/dL (8.5-10.1); Calculated LDL 111 mg/dL (<100); Chloride 103 mmol/L (98-107); Cholesterol 154 mg/dL (<200); Estimated GFR 112.95 (mL/min/1.73m2); Glucose 96 mg/dL (74-106); HDL Cholesterol 34 mg/dL (>or=40); Potassium 4.6 mmol/L (3.5-5.1); Sodium 137 mmol/L (136-145); Total Protein 6.5 g/dL (6.4-8.2); Triglyceride 45 mg/dL (<150)
[2024-12-29 20:42] LABS: Abs Immature Grans 0.02 10^3/uL (0.0-0.06); HCT 42.5 % (40.0-50.0); HGB 15.1 g/dL (13.5-17.5); Immature Grans % 0.2 %; MCH 33.6 pg (27.0-33.0); MCHC 35.5 % (32.0-36.0); MCV 94 fL (80-95); MPV 8.4 fL (8.0-11.0); Platelet Count 278 10^3/uL (130-400); RBC 4.50 10^6/uL (4.36-5.78); RDW 13.3 % (11.8-14.1); RDW-SD 46.4 fL; WBC 8.01 10^3/uL (4.4-10.8)
[2024-12-30 18:54] LABS: HIV-1/2 Ag & Ab Screen Negative (Negative)
[2024-12-30 20:04] LABS: Hepatitis C Ab w Rflx HCV PCR Negative (Negative)
== END 2024-12-29 17:23 | disposition home or self-care (01) ==
LOC: NCHCN 17:22
PROVIDERS: PCP Nurse Practitioner Family; Visit Provider Nurse Practitioner Family
DX: Z11.4 Encounter for screening for human immunodeficiency virus [HIV] (principal); Z11.59 Encounter for screening for other viral diseases; Z00.00 Encounter for general adult medical examination without abnormal findings
CPT/HCPCS: 80053; 80061; 86803; 87389; 85025